=== PATIENT | female | born 1985 | race African-American/Black ===

== ENCOUNTER 2020-10-14 16:31 | Emergency (ER) | payer SELFPAY ==
[~2020-10-14] VITALS: Ht 157.5 cm; Wt 89.4 kg
[2020-10-14] MEDS ORDERED: IBUPROFEN 600 MG TAB PO STA (17:08)
[2020-10-14] MEDS ORDERED: IBUPROFEN 600 MG TAB ONE (17:43)
[2020-10-14] MEDS ORDERED: NAPROSYN500 MG PO (18:17)
== END 2020-10-14 19:02 | disposition home or self-care (01) ==
LOC: FSED 17:15
DX: M25.561 Pain in right knee (principal); M25.511 Pain in right shoulder; F17.210 Nicotine dependence, cigarettes, uncomplicated
CPT/HCPCS: 99283